=== PATIENT | male | born 1975 ===

== ENCOUNTER 2016-12-04 14:26 | Emergency (ER) | payer OTHER ==
[2016-12-04 14:49] VITALS: BP 106/71; PULSE 93; RESP 16; TEMP 98; O2SAT 98
[2016-12-04] MEDS ORDERED: TDAP Vaccine 0.5 mL Syr IM ONE (16:33)
--- NOTE | 2016-12-04 16:35 | ED PDOC ---
HPI: Wound Care - HPI Time Seen by Provider: 12/04/16 16:33 Chief Complaint (Nursing): Abnormal Skin Integrity Chief Complaint (Provider): laceration History Per: Patient Exam Limitations: no limitations Additional Complaint(s): 41yo M in ED for eval of laceration sustained <11 hr ago yesterday after a drone part cut the dorsum of his right hand-denies numbness tingling or dec ROM no active bleeding no swelling to hand no fever. Past Medical History Reviewed: Historical Data, Nursing Documentation, Vital Signs Vital Signs: Last Vital Signs Temp 98.0 F 12/04/16 14:46 Pulse 93 H 12/04/16 14:46 Resp 16 12/04/16 14:46 BP 106/71 12/04/16 14:46 Pulse Ox 98 12/04/16 14:46 - Medical History PMH: No Chronic Diseases - Family History Family History: States: No Known Family Hx - Home Medications Home Medications: Ambulatory Orders Medication Instructions Recorded Cephalexin [cephalexin] 500 mg PO BID #20 cap 12/04/16 - Allergies Allergies/Adverse Reactions: Allergies Allergy/AdvReac Type Severity Reaction Status Date / Time meperidine HCl [From Demerol] Allergy RASH Verified 12/04/16 14:46 Review of Systems ROS Statement: Except As Marked, All Systems Reviewed And Found Negative Musculoskeletal: Positive for: Hand Pain Physical Exam - Reviewed Nursing Documentation Reviewed: Yes Vital Signs Reviewed: Yes - Physical Exam Appears: Positive for: Well, Non-toxic, No Acute Distress Head Exam: Positive for: ATRAUMATIC, NORMAL INSPECTION, NORMOCEPHALIC Skin: Positive for: Normal Color, Warm, DRY Cardiovascular/Chest: Positive for: Regular Rate, Rhythm Respiratory: Positive for: CNT, Normal Breath Sounds Extremity: Positive for: Normal ROM, Other (hand: right dorsum laceration #2- irregular no active bleeding. ) Neurologic/Psych: Positive for: Alert, Oriented - ECG O2 Sat by Pulse Oximetry: 98 Procedure: Wound Repair - Time Performed Time Performed: 16:59 - Time Out Time Out: Side verified, Site verified, Patient ID confirmed, Sterile procedures obs. - Consent Obtained Consent obtained: Emergent consent implied - Performed by Performed by: Mid-level Provider - Indications Indication(s):: Laceration - Location Location:: Right Shape:: Curvilinear Depth:: Epidermis - Anesthetic Technique Anesthetic Technique: Local Local/Regional Anesthetic:: Lidocaine 1% - Wound Examination Wound Examination:: Contaminated - Debris Debris:: None - Irrigated Irrigated with ml of normal saline: #1: 3 cmlinear 4 sutures placed simple interrupted#2 3cm irregular 4 suture - Complexity Complexity:: Simple (one layer) Medical Decision Making Medical Decision Making: pt placed in splint to prevent hsand ROM an given hand instruction on wound care and given kefelx for abx Disposition - Clinical Impression Clinical Impression: Laceration - Patient ED Disposition Is Patient to be Admitted: No Counseled Patient/Family Regarding: Diagnosis, Need For Followup, Rx Given - Disposition Disposition: Routine/Home Disposition Time: 16:54 Condition: STABLE Additional Instructions: do not wet sutures keep splint on take your antibiotics. Prescriptions: Cephalexin [cephalexin] 500 mg PO BID #20 cap Instructions: Laceration (ED), Care For Your Stitches (ED)
== END 2016-12-04 17:05 | disposition home or self-care (01) ==
LOC: H.ER 14:26
DX: S61.011A Laceration without foreign body of right thumb without damage to nail, initial encounter (principal); W26.8XXA Contact with other sharp object(s), not elsewhere classified, initial encounter; Y93.9 Activity, unspecified